=== PATIENT | female | born 1945 | race Caucasian/White ===

== ENCOUNTER → 2018-04-14 16:27 | Outpatient (CLI) | payer MEDICARE, SELFPAY | PROVIDERS: Referring Provider Nurse Practitioner Adult Health; Visit Provider Nurse Practitioner Adult Health | DX: R82.998 Other abnormal findings in urine (principal) | CPT/HCPCS: 87086; 87088; 87186 ==

== ENCOUNTER → 2019-04-06 09:44 | Outpatient (CLI) | payer MEDICARE, SELFPAY ==
--- NOTE | 2019-04-06 14:23 | PFTCOMP ---
COMPLETE PULMONARY FUNCTION TEST INTERPRETATION Brief HPI: Patient is a 73 year old female, currently under the care of Dr. Belcher, who presents to [facility] [place] for complete pulmonary function tests secondary to diagnosis of dyspnea. Respiratory therapist reports good effort and reproducible results. Interpretation: Forced expiration spirometry shows no large airways obstructive ventilatory defect with an FEV1 of 106% predicted. There is no significant bronchodilator response by strict ATS criteria. Spirograms are of good quality and plateau normally. The respiratory flow volume loop shows a normal pattern. Lung volumes by body plethysmography show a normal total lung capacity at 4.27 L, 97% predicted. All other lung volumes are within normal limits. Diffusion capacity by carbon monoxide is normal at 99% predicted. The airway resistance is normal. No previous pulmonary function tests were available for review. Impression: These pulmonary function tests are within normal limits. If asthma is a consideration, bronchoprovocation study can be completed.
== END ==
DX: R06.09 Other forms of dyspnea (principal)
CPT/HCPCS: 94060; 94726; 94729

== ENCOUNTER → 2024-01-13 | Outpatient (CLI) | payer MEDICARE, SELFPAY | END | disposition home or self-care (01) | PROVIDERS: Referring Provider Urology; Visit Provider Urology | DX: N30.00 Acute cystitis without hematuria (principal) | CPT/HCPCS: 87086; 87088; 87186 ==